=== PATIENT | female | born 1960 | race Caucasian/White ===

== ENCOUNTER 2023-08-29 08:43 | Day surgery (SDC) | payer MEDICARE, OTHER ==
[2023-08-15 13:41] VITALS: BP 173/100
[~2023-08-29] VITALS: Ht 167.6 cm; Wt 118.6 kg
[~2023-08-29 08:43] MED LIST: AMOXICILLIN500 MG PO; ANTABUSE500 MG PO; ATIVAN0.5 MG PO; BUSPIRONE HCL10 MG PO; CEFAZOLIN SODIUM 2 GM/20 ML SYR IV SCH; CEPHALEXIN500 MG PO; CLONAZEPAM0.5 MG PO; CLONAZEPAM1 MG PO; GABAPENTIN300 MG PO; GEODON80 MG NG; HALDOL DEC50 MG/1 ML IM; IBLOOD GLUCOSE TEST STRIP 1 EA TEST VI PRN; LACTATED RINGER'S 1,000 ML IV SCH; LAMICTAL XR200 MG PO; LATUDA80 MG PO; LEVAQUIN500 MG PO; LIDOCAINE HCL 1% 5 ML SDV INJ ONE; MACROBID 100 M100 MG PO; MIDAZOLAM HCL 5 MG/5 ML VIAL IV PRN; NORCO 5-325 TA1 EACH PO; OLANZAPINE10 MG PO; OLANZAPINE20 MG PO; PAXIL20 MG PO; PRILOSEC20 MG PO; PROPRANOLOL HCL10 MG PO; PROPRANOLOL HCL40 MG PO; REQUIP0.25 MG PO; ROPINIROLE HC0.25 MG PO; SERTRALINE HCL25 MG PO; SERTRALINE HCL50 MG PO; TOLTERODINE TART2 MG PO; WELLBUTRIN SR150 MG PO; ZYPREXA20 MG PO; [UNRECOGNIZED DRUG - REMARK]; [UNRECOGNIZED DRUG - REMARK]; fentaNYL citrate 100 MCG/2 ML VIAL IV PRN
[2023-08-29 09:05] VITALS: BP 118/89
[2023-08-29] MEDS ORDERED: LIDOCAINE HCL 2% 5 ML SDV ONE (09:32)
[2023-08-29] MEDS ORDERED: propofoL 200 MG/20 ML VIAL ONE (09:32)
[2023-08-29] MEDS ORDERED: IBLOOD GLUCOSE TEST STRIP 1 EA TEST VI PRN (10:15)
[2023-08-29] MEDS ORDERED: NALOXONE HCL 0.4 MG SYR IV PRN (10:15)
--- NOTE | 2023-08-29 10:37 | NUR ---
08/29/23 1037 Sheets,Jessica 1007 PT ARRIVED TO PACU ON 2L VIA NC, PT ASLEEP AND RESP EVEN AND UNLABORED. 1020 PT WAKES EASILY AND ROLLS TO BACK. O2 REMOVED. HOB INCREASED. 1031 PT SIPPING COFFEE AND DENIES CONCERNS.
[2023-08-29 10:42] VITALS: BP 122/90
--- NOTE | 2023-08-29 13:54 | OR ---
[facility] [address] [place], [place] [address] Signed DATE OF OPERATION: 08/29/2023 SURGEON: Marlys Rock MD PREOPERATIVE DIAGNOSES: 1. Internal external hemorrhoids. 2. Hemorrhoidectomy x2. 3. Screening. POSTOPERATIVE DIAGNOSES: 1. Minimal internal hemorrhoids x1. 2. Long redundant sigmoid and left colon. 3. Minimal sigmoid diverticulosis. 4. 4 mm polyps x3 at 7 cm in rectum. 5. 5 mm polyp at 85 cm. 6. 4 mm polyp at 80 cm. 7. 6 mm polyp at 50 cm. PROCEDURE: Colonoscopy with hot biopsy. ESTIMATED BLOOD LOSS: None. INDICATIONS: Sera is a 63-year-old obese female, asked to see me for followup colonoscopy. I helped her in 2011 at the age of 51 for rectal bleeding. This was her initial colonoscopy. She had two external hemorrhoids along with some small internal hemorrhoid tissue. We had asked her to follow up in 10 years. She came back and underwent hemorrhoidectomy x2. She always requires monitored anesthesia care due to her complex medical history and her body habitus. In fact, she has a very large abdomen. She gives no family history of colon cancer or polyps. In the office, I gave her a pamphlet on colonoscopy along with her caregiver. They understand the nature of the test. There is risk including, but not limited to gas bloating, crampy abdominal pain, bleeding, perforation requiring surgery, and missed diagnosis. We also asked to hold meloxicam for three days prior to the procedure. Again, because of her significant obesity and very full round heavy face, chest and very large abdomen, she requires monitored anesthesia care with propofol infusion. We also gave her antibiotics because of her right knee replacement. She had expressed understanding and wished to proceed. Electronically Signed By: MARLYS ROCK MD 08/29/23 1354 PATIENT NAME: SERA POLLARD OPERATIVE REPORT DATE OF : 64 REPORT #: [id number] PHYSICIAN: MARLYS ROCK MD PCP: HELENA PIEDRA MD REPORT IS CONFIDENTIAL AND NOT TO BE RELEASED WITHOUT AUTHORIZATION [facility] [address] [place], [place] [address] Signed DESCRIPTION OF PROCEDURE: Sera was taken into our endoscopy suite and placed in the left lateral decubitus position. She was given monitored anesthesia care with propofol infusion per our nurse marine steamfitter. A digital rectal exam was performed, this was unremarkable. We could not appreciate any external hemorrhoids. There was no evidence of any anal stricture. She had good sphincter tone. There were no masses. The adult colonoscope was introduced and advanced under direct visualization of the camera. She has an enormously large protuberant abdomen and it took two nurses to apply pressure on the abdomen and we got up to where we started to see some bilious stool in the colon. We may have been in the distal right colon, maybe the proximal transverse colon. We never could see an obvious hepatic flexure. Her prep actually was pretty good. She could always take a little more prep in the future if she would like. We only made it in about 100 cm. It was impressive we pulled back through a very long redundant colon. We did see several small diverticula in the sigmoid colon on this occasion. They are very small, few in number and scattered about. Also, the above-mentioned polyps were removed with the help of hot biopsy forceps. Once in the rectum, the scope had been retroflexed and she does have some very minimal internal hemorrhoid tissue. After this, the gas was suctioned out and colonoscope removed. Sera tolerated the procedure quite well. RECOMMENDATIONS: I will see Sera back in my office in 7 to 14 days to review her results. She will need a barium enema to complete her screening of the proximal colon. She will always need monitored anesthesia care in the future. She might consider a little extra prep in the future based on her long redundant colon. Marlys Rock MD [facility] /[id number] cc: MD Helena Shaw MD Copies: MARLYS ROCK MD Electronically Signed By: MARLYS ROCK MD 08/29/23 1354 PATIENT NAME: SERA POLLARD OPERATIVE REPORT DATE OF : 64 REPORT #: [id number] PHYSICIAN: MARLYS ROCK MD PCP: HELENA PIEDRA MD REPORT IS CONFIDENTIAL AND NOT TO BE RELEASED WITHOUT AUTHORIZATION [address] [address] Signed HELENA PIEDRA MD ~ Electronically Signed By: MARLYS ROCK MD 08/29/23 1354 PATIENT NAME: SERA POLLARD OPERATIVE REPORT DATE OF : 64 REPORT #: [id number] PHYSICIAN: MARLYS ROCK MD PCP: HELENA PIEDRA MD REPORT IS CONFIDENTIAL AND NOT TO BE RELEASED WITHOUT AUTHORIZATION
--- NOTE | 2023-09-03 07:22 | PATH ---
[facility] [address] [place], [place] [address] Signed SPECIMEN(S): A RECTAL POLYP AT 7 CM SPECIMEN(S): B COLON POLYP AT 85 CM SPECIMEN(S): C COLON POLYP AT 80 CM SPECIMEN(S): D COLON POLYP AT 50 CM SPECIMEN SOURCE: A. RECTAL POLYP AT 7 CM B. COLON POLYP AT 85 CM C. COLON POLYP AT 80 CM D. COLON POLYP AT 50 CM CLINICAL HISTORY: Screening, hemorrhoids FINAL PATHOLOGIC DIAGNOSIS: A. Rectum, 7 cm, polypectomy: - Hyperplastic polyp B. Colon, 85 cm, polypectomy: - Sessile serrated polyp C. Colon, 80 cm, polypectomy: - Colonic mucosa with no significant pathologic changes D. Colon, 50 cm, polypectomy: - Hyperplastic polyp BRP MICROSCOPIC EXAMINATION: Histologic sections of all submitted blocks are examined by light microscopy. These findings, together with the gross examination, support the pathologic diagnosis. GROSS DESCRIPTION: A. The specimen, labeled and designated "Atul, rectal polyp at 7 cm," is received in formalin and consists of four wu soft tissue fragments, ranging from 0.1-0.2 cm. Entirely submitted in (A1). B. The specimen, labeled and designated "Atul, colon polyp at 85 cm," is received in formalin and consists of one wu soft tissue fragment, 0.2 cm. Entirely submitted in (B1). C. The specimen, labeled and designated "Banks, colon polyp at 80 cm," is received in formalin and consists of one wu soft tissue fragment, 0.1 cm. Entirely submitted in (C1). D. The specimen, labeled and designated "Atul, colon polyp at 50 cm," is PATIENT NAME: ABAD POLLARD PATHOLOGY DATE OF : 64 REPORT #: [id number] PHYSICIAN: JUAN DANIEL HAYNES PCP: HELENA PIEDRA MD REPORT IS CONFIDENTIAL AND NOT TO BE RELEASED WITHOUT AUTHORIZATION [facility] [address] [place], [place] [address] Signed received in formalin and consists of one wu soft tissue fragment, 0.2 cm. Entirely submitted in (D1). JS (under the direct supervision of a pathologist) The Gross Description was prepared using a voice recognition system. The report was reviewed for accuracy; however, sound-alike word errors, addition and/or deletions may occur. If there is any question about this report, please contact Client Services. ADDITIONAL NOTES: Immunohistochemical and/or in situ hybridization studies if performed in this case included appropriate positive controls that reacted as expected. This test was developed and its performance characteristics determined by [email or web address]. It has not been cleared or approved by the U.S. Food and Drug Administration. The FDA has determined that such clearance or approval is not necessary. This test is used for clinical purposes. It should not be regarded as investigational or for research. [email or web address] is certified under the Clinical Laboratory Improvement Amendments of 1988 (CLIA) as qualified to perform high complexity clinical laboratory testing. PERFORMING LABORATORY: Technical component was performed by [email or web address], [address] [place] [id number] (CLIA# [id number]). Professional interpretation was performed by [facility] [address] [place] [id number] Diagnostician: Marc Duggan MD Pathologist Electronically Signed 09/02/2023 Copies: ~ PATIENT NAME: ATULABAD PATHOLOGY DATE OF : 64 REPORT #: [id number] PHYSICIAN: JUAN DANIEL HAYNES PCP: HELENA PIEDRA MD REPORT IS CONFIDENTIAL AND NOT TO BE RELEASED WITHOUT AUTHORIZATION
== END 2023-08-29 11:00 | disposition home or self-care (01) ==
LOC: OPS 08:43 → DS 08:43 → OPS 09:00
PROVIDERS: ATTEND Colon & Rectal Surgery
PROC: 0DBE8ZX Excision of Large Intestine, Via Natural or Artificial Opening Endoscopic, Diagnostic (ICD-10-PCS; 2023-08-29)
PROC: 0DBP8ZX Excision of Rectum, Via Natural or Artificial Opening Endoscopic, Diagnostic (ICD-10-PCS; principal; 2023-08-29 08:45)
DX: Z12.11 Encounter for screening for malignant neoplasm of colon (principal); D12.6 Benign neoplasm of colon, unspecified; K62.1 Rectal polyp; K63.5 Polyp of colon; K64.8 Other hemorrhoids; K57.30 Diverticulosis of large intestine without perforation or abscess without bleeding; Q43.8 Other specified congenital malformations of intestine
CPT/HCPCS: 00812; 88305; J0690; J2001; J2704; J7121